=== PATIENT | female | born 1955 | race Caucasian/White ===

== ENCOUNTER → 2017-01-28 | Outpatient (CLI) | payer BC ==
--- NOTE | 2017-01-28 16:18 | CT ---
EXAMINATION TYPE: CT chest wo con DATE OF EXAM: 01/28/2017 COMPARISON: Radiograph 04/09/2016 HISTORY: 61-year-old female with asthma, SOB x1 year. TECHNIQUE: Contiguous axial scanning of the chest without IV contrast. Coronal and sagittal reconstru ctions performed. CT DLP: 664 mGycm Automated exposure control for dose reduction was used. FINDINGS: There is a 2.9 x 1.6 cm hypodense nodule in the left lobe of the thyroid gland. This can be further e valuated with a dedicated thyroid ultrasound. Suspect an additional exophytic nodule from the lower p ole measuring 1.6 cm. Heart is normal size without pericardial effusion. Aorta is normal caliber with conventional arch vessel branching anatomy. No thoracic lymphadenopathy. Evaluation of the lungs show some mild subpleural interstitial scarring in the upper lungs. No conso lidation or pleural effusion. Calcified granuloma posterior left upper to midlung, axial image 16. There is also a 4 mm left upper lobe pulmonary nodule, axial image 16. Tiny hiatal hernia. Visualized upper abdomen shows mild to moderate stool. Bones: Mild multilevel endplate spondylosis. IMPRESSION: 1. NO ACUTE PULMONARY PROCESS. A 4 MM LEFT UPPER LOBE PULMONARY NODULE CAN BE REASSESSED IN ONE YEAR. 2. SOME INTERSTITIAL SCARRING WITHIN THE UPPER LUNGS AND A SMALL CALCIFIED GRANULOMA IN THE LEFT LUNG . 3. LEFT THYROID LOBE NODULES MEASURING 2.9 AND 1.6 CM. FURTHER THYROID ULTRASOUND EVALUATION IS RECOM MENDED. 4. TINY HIATAL HERNIA.
--- NOTE | 2017-01-29 21:00 | ECHOF ---
Referral Reason:J45.909 asthma MEASUREMENTS -------- HEIGHT: 160.0 cm WEIGHT: 82.6 kg BP: 171/96 RVIDd: 2.6 cm (< 3.3) IVSd: 1.0 cm (0.6 - 1.1) LVIDd: 3.6 cm (3.9 - 5.3) LVPWd: 1.2 cm (0.6 - 1.1) IVSs: 1.4 cm LVIDs: 2.7 cm LVPWs: 1.4 cm LAESV Index (A-L): 11.31 ml/m Ao Diam: 2.5 cm (2.0 - 3.7) AV Cusp: 1.4 cm (1.5 - 2.6) LA Diam: 2.7 cm (2.7 - 3.8) MV E Jesse: 0.64 m/s MV DecT: 266 ms MV A Jesse: 0.90 m/s MV E/A Ratio: 0.72 FINDINGS -------- Sinus rhythm. This was a technically adequate study. Overall left ventricular systolic function is normal with, an EF between 55 - 60 %. The right ventricle is normal in size and function. Normal LA size by volume 22+/-6 ml/m2. The right atrium is normal in size. The aortic valve is trileaflet, and appears structurally normal. No aortic stenosis or regurgitation. The mitral valve leaflets are mildly thickened. There is trace to mild mitral regurgitation. Trace tricuspid regurgitation present. There is no evidence of pulmonary hypertension. The right ventricular systolic pressure, as measured by Doppler, is {RVSP}. The pulmonic valve was not well visualized. The aortic root size is normal. Normal inferior vena cava with normal inspiratory collapse consistent with estimated right atrial pressure of 5 mmHg. The pericardium is normal. Echo free space may represent effusion or a pericardial fat pad. CONCLUSIONS -------- 1. Sinus rhythm. 2. The right ventricular systolic pressure, as measured by Doppler, is {RVSP}. 3. The pulmonic valve was not well visualized. 4. The aortic root size is normal. 5. Echo free space may represent effusion or a pericardial fat pad. 6. This was a technically adequate study. 7. Overall left ventricular systolic function is normal with, an EF between 55 - 60 %. 8. Normal LA size by volume 22+/-6 ml/m2. 9. The aortic valve is trileaflet, and appears structurally normal. No aortic stenosis or regurgitation. 10. The mitral valve leaflets are mildly thickened. 11. There is trace to mild mitral regurgitation. 12. Trace tricuspid regurgitation present. 13. There is no evidence of pulmonary hypertension. [employer] ARCHITECT: Marino Hassan RDCS
== END | disposition home or self-care (01) ==
LOC: RADCTMAIN 14:50
PROVIDERS: ATTEND Internal Medicine Critical Care Medicine
DX: I34.0 Nonrheumatic mitral (valve) insufficiency (principal); R91.1 Solitary pulmonary nodule; J98.4 Other disorders of lung; K44.9 Diaphragmatic hernia without obstruction or gangrene
CPT/HCPCS: 71250; 93306

== ENCOUNTER → 2017-02-05 | Outpatient (CLI) | payer BC ==
--- NOTE | 2017-02-05 14:16 | US ---
EXAMINATION TYPE: US thyroid st tissue head/neck DATE OF EXAM: 02/05/2017 COMPARISON: CT CLINICAL HISTORY: E04.1 Nontoxic Single Thyroid Nodule. Nodule seen on recent CT GLAND SIZE: Right Lobe: 5.0 x 1.7 x 1.2 cm Overall Parenchyma: homogenous Left Lobe: 5.4 x 2.3 x 2.3 cm Overall Parenchyma: heterogeneous Isthmus Thickness: 0.2 cm NODULES RIGHT: # of nodules measured on right: 2 1. 0.8 X 0.4 x 0.7 cm hypoechoic solid nodule at the upper pole with well-defined margins. This nod ule is wider than tall and shows no intranodular vascularity. Prior size: no prior 2. 0.6 X 0.3 x 0.4 cm hypoechoic solid nodule at the mid pole with well-defined margins. This nodule is wider than tall and shows no intranodular vascularity. Prior size: no prior LEFT: # of nodules measured on left: 2 1. 3.5 X 1.9 x 2.1 cm hypoechoic solid nodule at the mid pole with well-defined margins. This nodul e is wider than tall and shows intranodular vascularity. Prior size: no prior 2. 1.6 X 1.1 x 1.7 cm hypoechoic cystic nodule at the lower pole with well-defined margins. This nod ule is wider than tall and shows no intranodular vascularity. Prior size: no prior ISTHMUS: # of nodules measured in the isthmus: 0 Bilateral neck scanned, no evidence of lymphadenopathy. Nodules as described, lower lobe nodules appears within thyroid on ultrasound. IMPRESSION: Enlarged multinodular goiter with a suspicious dominant solid, vascular nodule measuring 3.5 cm. Perc utaneous fine-needle aspiration is recommended for tissue sampling of this nodule.
== END | disposition home or self-care (01) ==
LOC: RADUSWWP 13:23
PROVIDERS: ATTEND Internal Medicine
DX: E04.2 Nontoxic multinodular goiter (principal)
CPT/HCPCS: 76536

== ENCOUNTER 2017-03-11 07:43 | Day surgery (SDC) | payer BC ==
[2017-03-04 16:14] VITALS: BMI 30.4
[~2017-03-11 07:43] MED LIST: DEXAMETHASONE SOD PHOSPHATE 10 MG/ML 1 ML VIAL IV ONE; HEPARIN SODIUM,PORCINE 5,000 UNIT/ML 1 ML VIAL SQ ONE; HYDROmorphone 0.5 MG/0.5 ML SYRINGE IVP PRN; LACTATED RINGERS 1,000 ML IV SCH; MIDAZOLAM 2 MG/2 ML VIAL IV PRN; Pre Op ABX Message 1 EACH MISC MISCELLANE ONE; SCOPOLAMINE 1.5MG/72HR PATCH TRANSDERM ONE
[2017-03-11] MEDS ORDERED: LIDOCAINE 1% 20 ML VIAL (10MG/ML) FOR IV START INTRADERMA ONE (08:26)
[2017-03-11] MEDS: ONDANSETRON 4 MG/2 ML VIAL IVP ONE ×2 (08:26→12:20)
[2017-03-11] MEDS ORDERED: HEPARIN SODIUM,PORCINE 5,000 UNIT/ML 1 ML VIAL SQ ONE (08:51)
[2017-03-11] MEDS ORDERED: fentaNYL (PF) 50 MCG/ML 2 ML AMP ONE (09:44)
[2017-03-11] MEDS ORDERED: LIDOCAINE 1% INJ 10MG/ML (20 ML MDV) ONE (09:44)
[2017-03-11] MEDS ORDERED: SUCCINYLCHOLINE CHLORIDE 100 MG/5 ML SYR IV ONE (09:44)
[2017-03-11] MEDS ORDERED: PROPOFOL 10 MG/ML 20 ML VIAL IV ONE (09:44)
[2017-03-11] MEDS ORDERED: ePHEDrine SULFATE/0.9% NACL/PF 50 MG/5 ML SYRINGE IV ONE (09:44)
[2017-03-11] MEDS ORDERED: MIDAZOLAM 2 MG/2 ML VIAL ONE (09:44)
[2017-03-11] MEDS ORDERED: SODIUM CHLORIDE 0.9% 50 ML with CLINDAMYCIN 600 MG IV ONE ×2 (10:14)
[2017-03-11] MEDS ORDERED: LACTATED RINGERS 1,000 ML IV ONE (11:30)
[2017-03-11] MEDS ORDERED: NALOXONE 0.4 MG/ML 1 ML VIAL IV PRN (12:02)
[2017-03-11] MEDS ORDERED: CALCIUM CARBONATE 500 MG CHEWABLE PO PRN (12:02)
[2017-03-11] MEDS ORDERED: ONDANSETRON 4 MG/2 ML VIAL IVP PRN (12:02)
[2017-03-11] MEDS ORDERED: HYDROmorphone 1 MG/ML 1 ML SYRINGE IV PRN (12:02)
--- NOTE | 2017-03-11 12:02 | P.OP ---
Date of Procedure: 03/11/17 Preoperative Diagnosis: left thyroid nodule with compressive symptoms Postoperative Diagnosis: same Procedure(s) Performed: left thyroid resection Anesthesia: PRANAY Surgeon: Annalee Hassan Estimated Blood Loss (ml): 15 IV fluids (ml): 900 Pathology: other (left lobe of thyroid) Condition: stable Disposition: PACU Indications for Procedure: 3.5 cm solid nodule left lobe of thyroid FNA with some atypia, patient has compressive symptoms, patient's molecular studies did not indicate cancer, however secondary compressive symptoms was recommended she undergo a left thyroid lobectomy possible total Operative Findings: Inflammatory changes in both lobes of the thyroid with a 3.5 cm superior pole nodule on the left Description of Procedure: The patient was noted to have a 0.5 cm nodule in the left lobe of the thyroid. She underwent an FNA wishes some atypia molecular studies were not consistent with cancer. This patient is having compressive symptoms and was seen by endocrinology. Was recommended she undergo a left thyroid lobectomy possible total thyroid lobectomy. Patient understands risks and benefits and wishes to proceed. The patient was taken to the operating room and following induction of general anesthesia the nerve stimulator was placed. The patient was placed in the beachchair position. The neck was prepped and draped in a sterile fashion. A collar incision was made and carried through the skin and subcutaneous tissue to the platysma. The platysma was divided. Superior and inferior skin flaps were developed. The strap muscles were divided in the midline. The left lobe of the thyroid was identified. The lobe was rotated medially being careful to identify and preserve the parathyroid glands as well as the recurrent laryngeal nerve. Superior pole vessels were ligated and divided. Inferior pole vessels were likewise ligated and divided. The lobe was rotated up onto the isthmus and the gland was divided using the Harmonic scalpel. The silk suture was placed on the isthmus as well. The recurrent laryngeal nerve was well identified. Both parathyroids on the left side were identified and preserved. There was no evidence of any bleeding at the termination of this portion of the procedure. The wound was irrigated. The specimen was sent to pathology for frozen section evaluation. The gland was very smooth however did have inflammatory changes on the external surface. Upon evaluation by pathology it was felt that frozen section would not be beneficial and therefore this was not performed. The right lobe of the thyroid was palpated again inflammatory changes appear to be present on the external surface of the gland however no enlarged nodules of concern were appreciated. Therefore was determined that we would not do a right thyroid lobectomy at this time for pathology. A Lynne drain was placed in the left gland fossa site. The strap muscles were sutured together using a 3-0 Vicryl suture. The platysma was closed with a 3-0 Vicryl suture. The skin was closed using 4-0 Monocryl. The drain was secured using nylon suture. The patient tolerated the procedure in stable condition. All instrument and sponge counts were correct at the end of the case
[2017-03-11] MEDS ORDERED: PROMETHAZINE INJ 25 MG/ML 1 ML VIAL IVPB ONE (13:05)
[2017-03-11] MEDS ORDERED: METOCLOPRAMIDE 5 MG/ML 2 ML VIAL IVP ONE (13:06)
[2017-03-11] MEDS: DEXTROSE 5%-0.45% NACL 1,000 ML IV SCH ×2 (14:31→21:31)
[2017-03-11 16:24] VITALS: RESP 16
[2017-03-11] MEDS: HEPARIN SODIUM,PORCINE 5,000 UNIT/ML 1 ML VIAL SQ SCH (16:35)
--- NOTE | 2017-03-11 18:00 | P.CON ---
Consult Note - . Assessment/Plan:: History of present illness the The patient is a 61-year-old female who has undergone surgical removal of a 3.5 cm superior pole nodule of the left lobe of the thyroid. The patient has been having some problems with shortness of breath and workup with the CAT scan revealed the nodule. The patient did undergo fine-needle aspiration. There was some indication at this may be causing some compression symptoms on the trachea and removal was undertaken. 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 Gastroesophageal reflux Surgical history Cardiac catheterization in February 2016 Previous multiple bilateral breast biopsies Repair of left rotator cuff A previous oophorectomy on the right. Previous bunionectomy The patient did have a fairly normal catheterization performed earlier this year. No history of myocardial infarction, diabetes or stroke. Medications: History of ALLERGIES to cephalexin with nausea and vomiting Home medications Mucinex twice a day Prilosec daily Pravastatin 20 mg at at bedtime Xyzal 5 mg daily Ibuprofen 800 mg twice a day when necessary Soma 350 mg 3 times a day as needed Calcium/vitamin D 600-400 twice daily Symbicort 800-4.52 inhalations twice a day. Review of systems: The patient sitting up in bed postop. No chest pain or shortness of breath. No nausea or vomiting at this time. No headache or visual disturbances. Family history Positive history of colon cancer and ovarian cancer. Social history Negative for smoking or alcohol usage. She does live locally with her . She is a retired nurse. Physical examination Pulse is 88 with respirations 16 and blood pressure 120/71. She is 97% saturated on 2 L. Head is atraumatic. Extraocular movements are intact. The neck has a dressing present from her surgery. Lungs are clear to auscultation. Heart tones are regular without murmurs or rubs. Breast and pelvic exams deferred. Abdomen is soft and nontender. No unusual distal edema. She is alert and oriented. Cranial nerves intact. No focal neurological changes. Calcium is 9.2. Impressions and plans: Patient overall is doing well postop. Medications for acid reduction gastroesophageal reflux have been continued. We will also continue her inhalers for asthma control. Patient can be advanced as per surgery. Please call if any questions concerns or problems.
[2017-03-11] MEDS: HYDROcodone/APAP 5-325MG 1 EACH TAB PO PRN (18:48)
[2017-03-11] MEDS: SYMBICORT 80-4.5 MCG INHALER INHALATION SCH ×2 (20:42→20:56)
[2017-03-11] MEDS: guaiFENesin-DM 600/30MG 1 EACH TAB.ER.12H PO SCH (21:31)
[2017-03-12] MEDS: HEPARIN SODIUM,PORCINE 5,000 UNIT/ML 1 ML VIAL SQ SCH ×2 (00:19→07:59)
[2017-03-12] MEDS: HYDROcodone/APAP 5-325MG 1 EACH TAB PO PRN (02:19)
[2017-03-12 07:19] VITALS: BP 111/69; PULSE 65; TEMP 98.3
[2017-03-12] MEDS: guaiFENesin-DM 600/30MG 1 EACH TAB.ER.12H PO SCH (07:58)
--- NOTE | 2017-03-12 08:27 | P.PN ---
Progress Note - Text The patient is a 61-year-old female who underwent surgical removal of a 3.5 cm nodule at the left lower thyroid yesterday. Patient has a history of comorbidities that include hyperlipidemia, degenerative joint disease, osteopenia, gastroesophageal reflux and some element of moderate persistent asthma. This morning though she is sitting up eating breakfast. Denies any complaints of shortness of breath or chest pain. No nausea or vomiting. Vital signs reveal temperature this morning 98.3 with a pulse of 65 and respirations 16. Blood pressure is 111/69 and she is 94% saturated on room air. Lung and heart examination is clear and regular. Abdomen is nontender. No unusual distal edema. No focal neurological changes. Impressions and plans Patient appears to be doing well post surgery. The patient may resume her home medications on discharge and follow-up with surgery. She is to call office if any concerns or problems otherwise she may keep her regularly scheduled appointment.
[2017-03-12] MEDS: SYMBICORT 80-4.5 MCG INHALER INHALATION SCH (08:45)
[2017-03-12] MEDS ORDERED: PANTOPRAZOLE 40 MG/10 ML VIAL IV SCH (09:00)
--- NOTE | 2017-03-12 09:24 | P.DS ---
Providers Expected date of discharge: 03/12/17 Attending physician: Annalee Hassan Consults: 03/11/17 12:05 Consult Physician Routine Consulting Provider: Bertrand Boswell Reason/Comments: medical managment Do you want consulting provider notified?: Yes Primary care physician: Bertrand Boswell [facility] Course: 61-year-old female presented to undergo an elective left thyroid resection for a left thyroid nodule with compressive symptoms done on March 11. On March 12 Dr. Butts removed the Lynne drain from surgical site. Patient was felt to be hemodynamically stable and appropriate to proceed with a discharge to home. There was no facial numbness difficulty in swallowing there is no audible wheezing is on room air were 94% temp is 98.3 the calcium was 9.2. Subsequent the patient was discharged home with the plan the patient would follow-up with Dr. Butts in the outpatient setting the path report would be discussed when the results were available Impression discharge diagnosis Esophageal reflux. Status post March 11 thyroid resection of a 3.5 solid nodule left lobe of the thyroid with FNA Compressive symptoms suspect due to left lobe nodule mass The above impression and plan of care have been discussed and directed by signing physician. Anne Solorio nurse practitioner acting as scribe for signing physician. Plan - Discharge Summary New Discharge Prescriptions: New HYDROcodone/APAP 5-325MG [[place] 5-325] 1 tab PO Q4HR PRN #30 tab PRN Reason: Moderate Pain Continue Carisoprodol [Soma] 350 mg PO TID PRN PRN Reason: Muscle Spasm Pravastatin Sodium [Pravachol] 20 mg PO HS guaiFENesin-DM 600/30MG [Mucinex Dm] 1 each PO BID Multivit with Calcium,Iron,Min [Women's Daily Multivitamin] 1 each PO DAILY Inulin/Chromium Picolinate [Fiber Gummies Chew] 1 each PO DAILY Calcium Carbonate/Vitamin D3 [Calcium 600-Vit D3 400 Caplet] 1 each PO BID Budesonide/Formoterol Fumarate [Symbicort 80-4.5 Mcg Inhaler] 2 puff INHALATION BID Prilosec (Unknown Dose) 1 tab PO QAM Levocetirizine Dihydrochloride [Xyzal] 5 mg PO DAILY Ibuprofen [Motrin] 800 mg PO BID Discharge Medication List Calcium Carbonate/Vitamin D3 [Calcium 600-Vit D3 400 Caplet] 1 each PO BID 02/14 [History] Carisoprodol [Soma] 350 mg PO TID PRN 02/15/16 [History] Inulin/Chromium Picolinate [Fiber Gummies Chew] 1 each PO DAILY 02/15/16 [ History] Multivit with Calcium,Iron,Min [Women's Daily Multivitamin] 1 each PO DAILY 07/01 [History] Pravastatin Sodium [Pravachol] 20 mg PO HS 02/15/16 [History] guaiFENesin-DM 600/30MG [Mucinex Dm] 1 each PO BID 02/15/16 [History] Budesonide/Formoterol Fumarate [Symbicort 80-4.5 Mcg Inhaler] 2 puff INHALATION BID 03/04/17 [History] Ibuprofen [Motrin] 800 mg PO BID 03/04/17 [History] Levocetirizine Dihydrochloride [Xyzal] 5 mg PO DAILY 03/04/17 [History] Prilosec (Unknown Dose) 1 tab PO QAM 03/04/17 [History] HYDROcodone/APAP 5-325MG [[place] 5-325] 1 tab PO Q4HR PRN #30 tab 03/12/17 [Rx] Follow up Appointment(s)/Referral(s): Annalee Hassan MD [STAFF PHYSICIAN] - 1 Week Bertrand Boswell MD [Primary Care Provider] - 1 Week Care Plan Goals (MU): Dr. Butts's office this Friday follow-up if path report is available to review results May shower daily No heavy lifting greater than a milk carton tell seen in the follow-up visit with Dr. Butts No driving a car while taking [place] pain medication Notify Dr. Butts if any redness at surgical site fever chills or increased drainage Discharge Disposition: HOME SELF-CARE
== END 2017-03-12 10:51 | disposition home or self-care (01) ==
LOC: OR 07:43 → 6PED 12:58 → 3SUR 17:05 → OR 03-12 10:51
PROVIDERS: ATTEND Surgery
DX: C73 Malignant neoplasm of thyroid gland (principal); E06.3 Autoimmune thyroiditis; E04.2 Nontoxic multinodular goiter; E78.5 Hyperlipidemia, unspecified; K21.9 Gastro-esophageal reflux disease without esophagitis; Z79.51 Long term (current) use of inhaled steroids; Z79.899 Other long term (current) drug therapy; J45.909 Unspecified asthma, uncomplicated; M85.80 Other specified disorders of bone density and structure, unspecified site; Z79.1 Long term (current) use of non-steroidal anti-inflammatories (NSAID); Z88.1 Allergy status to other antibiotic agents
CPT/HCPCS: 94640 ×2; 82310; 88307; 60200; J2250; J1644 ×2; J1100; J2550; J2765; J2405; J2001; J3010; J0330; J2704; J1170

== ENCOUNTER → 2017-11-19 | Outpatient (CLI) | payer BC ==
--- NOTE | 2017-11-19 09:49 | US ---
EXAMINATION TYPE: US thyroid st tissue head/neck DATE OF EXAM: 11/19/2017 COMPARISON: US 02/05/2017 CLINICAL HISTORY: E04.2 Nontoxic multinodular goiter. Left lobe surgically absent GLAND SIZE: Right Lobe: 3.9 x 1.4 x 1.1 cm Overall Parenchyma: heterogenous Left Lobe: Surgically absent NODULES RIGHT: # of nodules measured on right: 2 1. 0.8 X 0.4 x 0.6 cm hypoechoic solid nodule at the upper pole with well-defined margins; . This nodule is wider than tall and shows intranodular vascularity. Prior size: 0.8 x 0.4 x 0.6 cm 2. 0.6 X 0.3 x 0.4 cm hypoechoic solid nodule at the lower pole with well-defined margins; . This n odule is wider than tall and shows intranodular vascularity. Prior size: 0.6 x 0.3 x 0.4 cm LEFT: # of nodules measured on left: 0 ISTHMUS: # of nodules measured in the isthmus: 0 Bilateral neck scanned, no evidence of lymphadenopathy. IMPRESSION: Nonspecific thyroid nodularity. Need to biopsy should be made on a clinical basis.
[2017-11-19 10:50] LABS: T4, Free (Free Thyroxine) 1.07 ng/dL (0.78-2.19)
== END | disposition home or self-care (01) ==
LOC: RADUSWWP 08:54
PROVIDERS: ATTEND Internal Medicine Endocrinology, Diabetes & Metabolism
DX: E04.2 Nontoxic multinodular goiter (principal)
CPT/HCPCS: 36415; 76536; 84439; 84443

== ENCOUNTER → 2018-05-01 | Outpatient (CLI) | payer BC ==
--- NOTE | 2018-05-01 12:33 | P.GSHP ---
History of Present Illness H&P Date: 05/01/18 Chief Complaint: breast fibrocystic changes Torri is a 62 year old white female who presents for a breast exam. The patient denies any lumps or masses in her breast. She has no pain in her breast. She has no nipple discharge or skin changes for which she is concerned. She had a bilateral mammogram done approximately a month ago and was told that this was within normal limits and that she could have a repeat mammogram in 1 year. I do not yet have the report from the mammogram available. She has had bilateral breast biopsies in the past all of which have been benign. Family History: mother: breast cancer 73 brother: colon/metastatic maternal aunt: colon Hormonal History: menarche: 13 ; none menopause: 55 BCP: none hormones: none Past Surgical History: 1. Bunionectomy 2. Left thyroid lobectomy 3. Multiple bilateral breast biopsies 4. Right oophrectomy 5. right carpal tunnel 6. left shoulder rotater cuff repair 7. left knee 8. heart cath Medical history: 1. Sleep apnea 2. High cholesterol Social history: Smoked: Negative Alcohol: Occasional wine Drugs: negative - Constitutional Comment: hot flashes Constitutional: Denies chills, Denies fever - EENT Eyes: denies blurred vision, denies pain Ears: bilateral: tinnitus, deny: decreased hearing Ears, nose, mouth and throat: Denies headache, Denies sore throat - Breasts Breasts: bilateral: as per HPI - Cardiovascular Cardiovascular: Denies chest pain, Denies shortness of breath - Respiratory Comment: asthma sleep apnea Respiratory: Denies cough, Denies 7 - Gastrointestinal Comment: Colonoscopy up-to-date Gastrointestinal: Reports constipation, Denies abdominal pain, Denies diarrhea, Denies nausea, Denies vomiting - Genitourinary (Female) Genitourinary: Denies dysuria, Denies hematuria - Menstruation Menstruation: Reports postmenopausal - Musculoskeletal Comment: arthritis - Integumentary Integumentary: Denies pruritus, Denies rash - Neurological Neurological: Denies numbness, Denies weakness - Psychiatric Psychiatric: Denies anxiety, Denies depression - Endocrine Endocrine: Denies fatigue, Denies weight change - Hematologic/Lymphatic Comment: motrin - Allergic/Immunologic Comment: no seasonal allergies Past Medical History Past Medical History: Asthma, GERD/Reflux, Hyperlipidemia, Hypertension, Osteoarthritis (OA), Thyroid Disorder Additional Past Medical History / Comment(s): Recent high blood pressure. "Questionable asthma, thinks maybe related to thyroid", current thyroid nodules pushing on trachea, current hiatal hernia, hx diverticulosis, DDD, neck & back pain, couple episodes of both arms numb, recent SOB w/activity, seasonal allergies. "Possible sleep apnea, may also be related to thyroid nodules." History of Any Multi-Drug Resistant Organisms: None Reported Past Surgical History: Breast Surgery, Heart Catheterization, Orthopedic Surgery Additional Past Surgical History / Comment(s): Multiple breast biopsies, bunionectomy, right oophorectomy, left rotator cuff repair. Past Anesthesia/Blood Transfusion Reactions: No Reported Reaction, Family History of Problems w/ Anesthesia Additional Past Anesthesia/Blood Transfusion Reaction / Comment(s): Mom with PONV. Past Psychological History: No Psychological Hx Reported Smoking Status: Never smoker Past Alcohol Use History: Occasional Past Drug Use History: None Reported - Past Family History Brother(s) Family Medical History: Cancer Father Family Medical History: Myocardial Infarction ([place]) Mother Family Medical History: Cancer Medications and Allergies Home Medications Medication Instructions Recorded Confirmed Type Calcium Carbonate/Vitamin D3 1 each PO BID 02/15/16 03/11/17 History [Calcium 600-Vit D3 400 Caplet] Carisoprodol [Soma] 350 mg PO TID PRN 02/15/16 03/11/17 History Inulin/Chromium Picolinate [Fiber 1 each PO DAILY 02/15/16 03/11/17 History Gummies Chew] Multivit with Calcium,Iron,Min 1 each PO DAILY 02/15/16 03/11/17 History [Women's Daily Multivitamin] Pravastatin Sodium [Pravachol] 20 mg PO HS 02/15/16 03/11/17 History guaiFENesin-DM 600/30MG [Mucinex 1 each PO BID 02/15/16 03/11/17 History Dm] Budesonide/Formoterol Fumarate 2 puff INHALATION BID 03/04/17 03/11/17 History [Symbicort 80-4.5 Mcg Inhaler] Ibuprofen [Motrin] 800 mg PO BID 03/04/17 03/11/17 History Levocetirizine Dihydrochloride 5 mg PO DAILY 09/19/17 09/26/17 History [Xyzal] Prilosec (Unknown Dose) 1 tab PO QAM 03/04/17 03/11/17 History HYDROcodone/APAP 5-325MG [[place] 1 tab PO Q4HR PRN #30 tab 03/12/17 Rx 5-325] Allergies Allergy/AdvReac Type Severity Reaction Status Date / Time cephalexin monohydrate AdvReac Nausea & Verified 03/11/17 14:34 [From Keflex] Vomiting Surgical - Exam - General well developed, well nourished, no distress - Eyes normal ocular movement - ENT no hearing loss, no congestion - Neck no masses, trachea midline - Respiratory normal respiratory effort, clear to auscultation - Cardiovascular Rhythm: regular Heart Sounds: normal: S1, S2 - Abdomen Abdomen: soft, non tender, no guarding, no rigid, no rebound - Integumentary normal turger - Neurologic no disoriented, no combative - Musculoskeletal normal gait, normal posture, other - Psychiatric oriented to time, oriented to person, oriented to place, speech is normal, memory intact Breast examination: Right breast: Multi-positional exam no dominant mass or nodules of concern, well -healed scar from prior abscesses Right axilla: No adenopathy of concern Left breast: Multi-positional exam no dominant masses or nodules of concern Left axilla: No adenopathy of concern Assessment and Plan Assessment: Impression: 1. Bilateral fibrocystic breast changes no dominant masses or nodules of concern 2. Reportedly recent bilateral mammogram was benign and recommended repeat bilateral mammogram in 1 year 3. Sleep apnea 4. Asthma 5. Arthritis Plan: 1. Obtain report from recent bilateral mammogram 2. Medical management of medical problems As long as report from recent mammogram does not reveal anything of concern patient has stable breast examination and repeat bilateral mammogram and physician exam in 1 year. Cc: Dr. Boswell
[2018-05-01 12:36] VITALS: BP 153/81; PULSE 94; RESP 18; TEMP 97.6; BMI 30.1
== END ==
LOC: WWCWWP 11:55
PROVIDERS: ATTEND Surgery
DX: Z53.9 Procedure and treatment not carried out, unspecified reason (principal)

== ENCOUNTER → 2018-11-04 | Outpatient (CLI) | payer BC ==
--- NOTE | 2018-11-04 15:50 | XR ---
EXAMINATION TYPE: XR chest 2V DATE OF EXAM: 11/04/2018 COMPARISON: CT chest 01/28/2017 HISTORY: Shortness of breath TECHNIQUE: Frontal and lateral views of the chest are obtained. FINDINGS: There is no focal air space opacity, pleural effusion, or pneumothorax seen. The cardiac silhouette size is within normal limits. There is bronchial wall thickening. The osseous structures are intact. IMPRESSION: Correlate for reactive airways disease, bronchitis.
== END | disposition home or self-care (01) ==
LOC: RADXRMAIN 14:26
PROVIDERS: ATTEND Internal Medicine
DX: R06.02 Shortness of breath (principal)
CPT/HCPCS: 71046

== ENCOUNTER → 2018-12-02 | Outpatient (CLI) | payer BC ==
[2018-12-02 17:49] LABS: T4, Free (Free Thyroxine) 0.9 ng/dL (0.80-1.80)
== END | disposition home or self-care (01) ==
LOC: LABWHC1 08:38
PROVIDERS: ATTEND Internal Medicine Endocrinology, Diabetes & Metabolism
DX: E04.2 Nontoxic multinodular goiter (principal)
CPT/HCPCS: 36415; 84439; 84443

== ENCOUNTER → 2019-04-09 | Outpatient (CLI) | payer BC ==
--- NOTE | 2019-04-09 10:04 | BD ---
EXAMINATION TYPE: Axial Bone Density DATE OF EXAM: 04/09/2019 COMPARISON: NONE CLINICAL HISTORY: Disorder of bone. Postmenopausal female. Height: 63 Weight: 174.5 FRAX RISK QUESTIONS: Alcohol (3 or more units per day): no Family History (Parent hip fracture): no Glucocorticoids (More than 3mos): no (Ex: prednisone, prednisolone, methylprednisolone, dexamethasone, and hydrocortisone). History of Fracture in Adulthood: no Secondary Osteoporosis: 1. Type 1 Diabetes: no 2. Hyperthyroidism: no 3. Menopause before 45: no 4. Malnutrition: no 5. Chronic liver disease: no Rheumatoid Arthritis: no Current Tobacco Use: no RISK FACTORS HISTORY OF: Family History of Osteoporosis: no Active: yes Diet low in dairy products/other sources of calcium: no Postmenopausal woman: age 51 Lost more than 2 inches in height since high school: no MEDICATIONS: Crestor, Symbicort, Motrin, inhalers Additional History: EXAM MEASUREMENTS: Bone mineral densitometry was performed using the [employer] System. Bone mineral density as measured about the Lumbar spine is: ----- L1-L4(G/cm2): 1.117 T Score Values are as follows: ----- L2: -0.2 ----- L3: 0.1 ----- L4: -0.9 ----- L1-L4: -0.5 Bone mineral density : baseline Bone mineral density about the R hip (g/cm2): 0.851 Bone mineral density about the L hip (g/cm2): 0.830 T Score values are as follows: -----R Neck: -1.3 -----L Neck: -1.5 -----R Total: -0.4 -----L Total: -0.5 Bone mineral density : baseline IMPRESSION: Osteopenia (T Score between -2.5 and -1). There is slightly increased risk of fracture and the patient may be considered for treatment. Re-Screen 2-5 years. NOTE: T-SCORE=SD OF THE YOUNG ADULT MEAN.
--- NOTE | 2019-04-12 08:23 | MM ---
Reason for exam: screening (asymptomatic). Last mammogram was performed 19 years ago. History: Patient is postmenopausal and is nulliparous. Family history of breast cancer in mother at age 72. Benign excisional biopsy of the right breast, April 30, 2000. Benign excisional biopsy of the left breast, November 29, 1998. 9 cyst aspirations of the left breast. 2 cyst aspirations of the right breast. Excisional biopsy of the right breast. Physical Findings: A clinical breast exam by your physician is recommended on an annual basis and results should be correlated with mammographic findings. MG 3D Screening Mammo W/Cad Bilateral CC and MLO view(s) were taken. Prior study comparison: April 21, 2018, mammogram, performed at [facility]. April 10, 2016, mammogram, performed at [facility]. The breast tissue is heterogeneously dense. This may lower the sensitivity of mammography. Finding #1: Stable architectural distortion in the upper outer quadrant of the right breast consistent with previous biopsy. Finding #2: There are typically benign calcifications in both breasts. Previous mammotome biopsy in the left breast. ASSESSMENT: Benign, BI-RAD 2 RECOMMENDATION: Routine screening mammogram of both breasts in 1 year.
== END | disposition home or self-care (01) ==
LOC: RADMAMWWP 07:52
PROVIDERS: ATTEND Surgery
DX: Z12.31 Encounter for screening mammogram for malignant neoplasm of breast (principal); M85.80 Other specified disorders of bone density and structure, unspecified site; Z80.3 Family history of malignant neoplasm of breast
CPT/HCPCS: 77063; 77067; 77080

== ENCOUNTER → 2019-04-16 | Outpatient (CLI) | payer BC ==
[2019-04-16 10:18] VITALS: BP 144/84; PULSE 86; RESP 18; TEMP 98; BMI 30.2
--- NOTE | 2019-04-16 11:11 | P.PN ---
Subjective Progress Note Date: 04/16/19 Principal diagnosis: Mastodynia, fibrocystic breast changes Torri is a 62 year old white female who presents for a breast exam. The patient denies any lumps or masses in her breast. She has pain intermittently in the left breast in the upper outer quadrant area. The pain is aching in nature. She has had multiple bilateral prior biopsies. The area does not feel fall when she has the discomfort. The discomfort seems to resolve on its own. She does not related to any specific activities. That had any trauma to her breast. She has no nipple discharge or skin changes for which she is concerned. Patient does not drink any caffeine. She does not smoke and is not exposed to secondhand smoke. She does eat chocolate weekly. She does not take hormones or use any sort products. The patient had a bilateral 3-D mammogram on [id number]. This revealed stable architectural distortion in the upper outer quadrant of the right breast consistent with previous biopsy Benign calcifications in both breast, previous mammotome biopsy in the left breast 5 minutes to Family History: mother: breast cancer 73 brother: colon/metastatic maternal aunt: colon Hormonal History: menarche: 13 ; none menopause: 55 BCP: none hormones: none Past Surgical History: 1. Bunionectomy 2. Left thyroid lobectomy 3. Multiple bilateral breast biopsies 4. Right oophrectomy 5. right carpal tunnel 6. left shoulder rotater cuff repair 7. left knee 8. heart cath Medical history: 1. Sleep apnea 2. High cholesterol Social history: Smoked: Negative Alcohol: Occasional wine Drugs: negative - Constitutional Comment: hot flashes Constitutional: Denies chills, Denies fever - EENT Eyes: denies blurred vision, denies pain Ears: bilateral: tinnitus, deny: decreased hearing Ears, nose, mouth and throat: Denies headache, Denies sore throat - Breasts Breasts: bilateral: as per HPI - Cardiovascular Cardiovascular: Denies chest pain, Denies shortness of breath - Respiratory Comment: asthma sleep apnea Respiratory: Denies cough, Denies 7 - Gastrointestinal Comment: Colonoscopy up-to-date Gastrointestinal: Reports constipation, Denies abdominal pain, Denies diarrhea, Denies nausea, Denies vomiting - Genitourinary (Female) Genitourinary: Denies dysuria, Denies hematuria - Menstruation Menstruation: Reports postmenopausal - Musculoskeletal Comment: arthritis - Integumentary Integumentary: Denies pruritus, Denies rash - Neurological Neurological: Denies numbness, Denies weakness - Psychiatric Psychiatric: Denies anxiety, Denies depression - Endocrine Endocrine: Denies fatigue, Denies weight change - Hematologic/Lymphatic Comment: motrin - Allergic/Immunologic Comment: no seasonal allergies Past Medical History Past Medical History: Asthma, GERD/Reflux, Hyperlipidemia, Hypertension, Osteoarthritis (OA), Thyroid Disorder Additional Past Medical History / Comment(s): Recent high blood pressure."Questionable asthma, thinks maybe related to thyroid", current thyroid nodules pushing on trachea, current hiatal hernia, hx diverticulosis, DDD, neck & back pain, couple episodes of both arms numb, recent SOB w/activity, seasonal allergies. "Possible sleep apnea, may also be related to thyroid nodules." History of Any Multi-Drug Resistant Organisms: None Reported Past Surgical History: Breast Surgery, Heart Catheterization, Orthopedic Surgery Additional Past Surgical History / Comment(s): Multiple breast biopsies, bunionectomy, right oophorectomy, left rotator cuff repair. Past Anesthesia/Blood Transfusion Reactions: No Reported Reaction, Family History of Problems w/ Anesthesia Additional Past Anesthesia/Blood Transfusion Reaction / Comment(s): Mom with PONV. Past Psychological History: No Psychological Hx Reported Smoking Status: Never smoker Past Alcohol Use History: Occasional Past Drug Use History: None Reported Objective - Vital Signs Vital signs: Vital Signs Temp 98 F 04/16/19 10:12 Pulse 86 04/16/19 10:12 Resp 18 04/16/19 10:12 BP 144/84 04/16/19 10:12 Pulse Ox 97 04/16/19 10:12 Intake & Output 04/15/19 04/16/19 04/16/19 18:59 06:59 18:59 Weight 77.564 kg - Exam BMI 30.3 - Constitutional General appearance: Present: average body habitus - EENT Eyes: Present: EOMI ENT: Present: hearing grossly normal - Neck Details: no cervical adenopathy Neck: Present: normal ROM - Respiratory Respiratory: bilateral: CTA - Cardiovascular Rhythm: regular Heart sounds: normal: S1, S2 - Gastrointestinal Gastrointestinal Comment(s): No guarding or rebound, normal bowel sounds, liver spleen normal size General gastrointestinal: Present: soft - Integumentary Integumentary Comment(s): Multiple scars bilateral breast well healed Integumentary: Present: normal turgor - Musculoskeletal Musculoskeletal: Present: gait normal - Psychiatric Psychiatric: Present: A&O x's 3, appropriate affect, intact judgment & insight - Additional findings Additional findings: Breast examination: Right breast: Multi-positional exam well-healed scar from prior surgery, fibrocystic changes, dense tissue, no discrete dominant masses or nodules,no discharge Right axilla: No adenopathy of concern Left breast: Multi-positional exam on the scar from prior surgery, fibrocystic changes, dense tissue no discrete dominant masses or nodules of concern, no nipple discharge of concern Left axilla: No adenopathy of concern Assessment and Plan Assessment: Impression: 1. Bilateral fibrocystic breast changes no dominant masses or nodules of concern 2. Recent bilateral mammogram benign repeat bilateral mammogram in a year 3. Asthma 4. Arthritis 5. Sleep apnea 6. Intermittent mastodynia most likely fibrocystic Plan: 1. Bilateral mammogram in 1 year with physician exam 2. Patient to call sooner if she notes any lesions of concern 3. Mastodynia intermittent, we have discussed. Was oil she was given a book on breast pain and she will use this as needed 4. Continues to use CPAP CC: Dr. Amezquita
== END | disposition home or self-care (01) ==
LOC: WWCWWP 09:30
PROVIDERS: ATTEND Surgery
DX: Z53.9 Procedure and treatment not carried out, unspecified reason (principal)

== ENCOUNTER → 2019-11-09 | Outpatient (CLI) | payer BC ==
[2019-11-09 11:29] LABS: Basophils % (A) 1 %; Eosinophils # (A) 0.1 k/uL (0-0.7); Eosinophils % (A) 1 %; HCT 44.5 % (34.0-46.0); HGB 14.4 gm/dL (11.4-16.0); Hypochromasia Slight; Lymphocytes % (A) 22 %; MCH 31.4 pg (25.0-35.0); MCHC 32.3 g/dL (31.0-37.0); MCV 97.2 fL (80.0-100.0); Mean Platelet Volume 6.4; Monocytes # (A) 0.6 k/uL (0-1.0); Monocytes % (A) 7 %; Neutrophils # (A) 5.7 k/uL (1.3-7.7); Neutrophils % (A) 65 %; Platelet Count 355 k/uL (150-450); RBC 4.57 m/uL (3.80-5.40); RDW 12.8 % (11.5-15.5); WBC 8.8 k/uL (3.8-10.6)
[2019-11-09 11:39] LABS: INR 0.9 (<1.2); Partial Thromboplastin Time 24.1 sec (22.0-30.0); Prothrombin Time 9.4 sec (9.0-12.0)
[2019-11-09 11:53] LABS: Appearance,Urine Clear (Clear); Bilirubin,Urine Negative (Negative); Blood,Urine Negative (Negative); Color,Urine Colorless; Glucose,Urine (UA) Negative (Negative); Ketones,Urine Negative (Negative); Leukocyte Esterase,Urine Negative (Negative); Nitrite,Urine Negative (Negative); Protein,Urine Negative (Negative); Specific Gravity,Urine 1.005 (1.001-1.035); Urobilinogen,Urine <2.0 mg/dL (<2.0)
[2019-11-09 15:27] LABS: African American GFR (CKD) 78.3 (60.0-200.0); Anion Gap 7.7 mmol/L (4.00-12.00); BUN/Creat Ratio 15.56 Ratio (12.00-20.00); Calcium 9.5 mg/dL (8.7-10.3); Carbon Dioxide 28.3 mmol/L (21.6-31.8); Non-African American GFR(CKD) 67.6 (60.0-200.0); Potassium 4.6 mmol/L (3.5-5.5)
== END | disposition home or self-care (01) ==
LOC: LABWHC1 10:20
PROVIDERS: ATTEND Nurse Practitioner Family
DX: Z01.812 Encounter for preprocedural laboratory examination (principal)
CPT/HCPCS: 36415; 80048; 81003; 85025; 85610; 85730; 87086

== ENCOUNTER → 2020-01-18 | Outpatient (CLI) | payer MEDICARE ==
[2020-01-18 17:01] LABS: T4, Free (Free Thyroxine) 1.1 ng/dL (0.80-1.80)
== END | disposition home or self-care (01) ==
LOC: LABWHC1 09:40
PROVIDERS: ATTEND Internal Medicine Endocrinology, Diabetes & Metabolism
DX: E04.2 Nontoxic multinodular goiter (principal)
CPT/HCPCS: 36415; 84439; 84443

== ENCOUNTER → 2020-02-22 | Outpatient (CLI) | payer MEDICARE ==
--- NOTE | 2020-02-23 10:01 | MM ---
Reason for exam: screening (asymptomatic). Last mammogram was performed 10 months ago. History: Patient is postmenopausal and is nulliparous. Family history of breast cancer in mother at age 72. Benign excisional biopsy of the right breast, April 30, 2000. Benign excisional biopsy of the left breast, November 29, 1998. 9 cyst aspirations of the left breast. 2 cyst aspirations of the right breast. Excisional biopsy of the right breast. Physical Findings: A clinical breast exam by your physician is recommended on an annual basis and results should be correlated with mammographic findings. MG 3D Screening Mammo W/Cad Bilateral CC and MLO view(s) were taken. Prior study comparison: April 09, 2019, bilateral MG 3d screening mammo w/cad. April 21, 2018, mammogram, performed at [facility]. The breast tissue is heterogeneously dense. This may lower the sensitivity of mammography. Benign appearing bilateral calcifications. Previous mammotome biopsy in the left breast. No significant changes when compared with prior studies. ASSESSMENT: Benign, BI-RAD 2 RECOMMENDATION: Routine screening mammogram of both breasts in 1 year.
== END | disposition home or self-care (01) ==
LOC: RADMAMWWP 08:13
PROVIDERS: ATTEND Surgery
DX: Z12.31 Encounter for screening mammogram for malignant neoplasm of breast (principal)
CPT/HCPCS: 77063; 77067

== ENCOUNTER → 2020-02-24 | Outpatient (CLI) | payer MEDICARE ==
[2020-02-24 09:46] VITALS: BP 133/80; PULSE 85; RESP 18; TEMP 98.1
--- NOTE | 2020-02-24 10:01 | P.PN ---
Subjective Progress Note Date: 02/24/20 Principal diagnosis: Fibrocystic breast changes Torri is a 64 year old white female who presents for a breast exam. The patient denies any lumps or masses in her breast. She has pain intermittently in the left breast in the upper outer quadrant area, this is only occasional and is better than they have been in the past. The pain is aching in nature. She has had multiple bilateral prior biopsies. The discomfort seems to resolve on its own. She does not related to any specific activities. That not had any trauma to her breast. She has no nipple discharge or skin changes for which she is concerned. Patient does not drink any caffeine. She does not smoke and is not exposed to secondhand smoke. She does eat chocolate weekly. She does not take hormones or use any soy products. The patient had a bilateral 3-D mammogram on 02-22-20. This revealed benign calcifications in both breasts. It was considered benign BIRADS 2 Family History: mother: breast cancer 73 brother: colon/metastatic maternal aunt: colon Hormonal History: menarche: 13 ; none menopause: 55 BCP: none hormones: none Past Surgical History: 1. Bunionectomy 2. Left thyroid lobectomy 3. Multiple bilateral breast biopsies 4. Right oophrectomy 5. right carpal tunnel 6. left shoulder rotater cuff repair 7. left knee 8. heart cath 9. total knee left November 15, 2019 Medical history: 1. Sleep apnea 2. High cholesterol Social history: Smoked: Negative Alcohol: Occasional wine Drugs: negative - Constitutional Comment: hot flashes improved Constitutional: Denies chills, Denies fever - EENT Eyes: denies blurred vision, denies pain Ears: bilateral: tinnitus, deny: decreased hearing Ears, nose, mouth and throat: Denies headache, Denies sore throat - Breasts Breasts: bilateral: as per HPI - Cardiovascular Cardiovascular: Denies chest pain, Denies shortness of breath - Respiratory Comment: asthma sleep apnea Respiratory: Denies cough, - Gastrointestinal Comment: Colonoscopy up-to-date Gastrointestinal: Reports constipation, Denies abdominal pain, Denies diarrhea, Denies nausea, Denies vomiting - Genitourinary (Female) Genitourinary: Denies dysuria, Denies hematuria - Menstruation Menstruation: Reports postmenopausal - Musculoskeletal Comment: arthritis - Integumentary Integumentary: Denies pruritus, Denies rash - Neurological Neurological: Denies numbness, Denies weakness - Psychiatric Psychiatric: Denies anxiety, Denies depression - Endocrine Endocrine: Denies fatigue, Denies weight change - Hematologic/Lymphatic Comment: motrin - Allergic/Immunologic Comment: no seasonal allergies Objective - Vital Signs Vital signs: Vital Signs Temp 98.1 F 02/24/20 09:43 Pulse 85 02/24/20 09:43 Resp 18 02/24/20 09:43 BP 133/80 02/24/20 09:43 Pulse Ox 96 02/24/20 09:43 Intake & Output 02/23/20 02/24/20 02/24/20 18:59 06:59 18:59 Weight 75.296 kg - Exam BMI 28.9 - Constitutional General appearance: Present: average body habitus - EENT Eyes: Present: EOMI ENT: Present: hearing grossly normal - Neck Neck: Present: normal ROM - Respiratory Respiratory: bilateral: CTA - Cardiovascular Rhythm: regular Heart sounds: normal: S1, S2 - Gastrointestinal General gastrointestinal: Present: normal bowel sounds, soft - Integumentary Integumentary: Present: normal turgor - Musculoskeletal Musculoskeletal: Present: gait normal - Psychiatric Psychiatric: Present: A&O x's 3, appropriate affect, intact judgment & insight - Additional findings Additional findings: Breast exam: BRA: 38C inspection: Ptosis grade 2 bilateral Palpation: Right breast: Multi-positional exam no dominant masses or nodules of concern, well-healed scar from prior surgery Right axilla: No adenopathy of concern Left breast: Multiple positional exam no dominant masses or nodules of concern, well-healed scar from prior surgery Left axilla: No adenopathy of concern Assessment and Plan Assessment: Impression: 1. Fibrocystic breast changes 2. Status post multiple bilateral breast biopsies 3. Mastodynia improved 4. Sleep apnea 5. Arthritis 6. Asthma 7. Recent bilateral mammogram, benign by related to repeat in 1 year Plan: 1. Bilateral mammogram in 1 year with physician exam 2. Patient call sooner if any questions or concerns 3. Mastodynia intermittent but improved 4. Medical management of medical conditions Cc: Dr. Erazo encounter 15 minutes, >%50% of time in planning and counselling Time with Patient: Less than 30
== END | disposition home or self-care (01) ==
LOC: WWCWWP 09:33
PROVIDERS: ATTEND Surgery
DX: Z53.9 Procedure and treatment not carried out, unspecified reason (principal)

== ENCOUNTER → 2020-03-08 | Outpatient (CLI) | payer MEDICARE ==
--- NOTE | 2020-03-08 14:15 | US ---
EXAMINATION TYPE: US thyroid st tissue head/neck DATE OF EXAM: 03/08/2020 COMPARISON: US 11/19/2017 CLINICAL HISTORY: E04.2 MULTINODULAR GOITER. GLAND SIZE: Right Lobe: 4.0 X 1.2 X 1.4 cm Overall Parenchyma: homogenous Left Lobe: Surgically absent NODULES RIGHT: # of nodules measured on right: 2 1. 0.7 X 0.4 x 0.6 cm hypoechoic solid nodule at the upper pole with well-defined margins; . This nodule is wider than tall and shows intranodular vascularity. Prior size: 0.8 x 0.4 x 0.6 cm 2. 0.5 X 0.4 x 0.4 cm hypoechoic mixed nodule at the mid pole with well-defined margins; . This nod ule is wider than tall and shows intranodular vascularity. Prior size: 0.6 x 0.3 x 0.4 cm LEFT: # of nodules measured on left: 0 ISTHMUS: # of nodules measured in the isthmus: 1 1. 0.8 X 0.3 x 0.7 cm hypoechoic cystic nodule at the mid pole with well-defined margins; . This n odule is wider than tall and shows no intranodular vascularity. Prior size: no previous At the area of the palpable lump left neck, there is a hypoechoic area visualized measuring 0.4 x 0.3 x 0.6 cm with vascularity. Possible lymph node vs other IMPRESSION: 1. No subcentimeter thyroid nodularity is nonspecific. Possible lymph node at the site of clinical co ncern. Correlate clinically.
== END | disposition home or self-care (01) ==
LOC: RADUSWWP 12:48
PROVIDERS: ATTEND Internal Medicine Endocrinology, Diabetes & Metabolism
DX: E04.2 Nontoxic multinodular goiter (principal)
CPT/HCPCS: 76536

== ENCOUNTER → 2021-02-26 | Outpatient (CLI) | payer MEDICARE ==
--- NOTE | 2021-02-28 09:10 | MM ---
Reason for exam: screening (asymptomatic). Last mammogram was performed 1 year ago. History: Patient is postmenopausal and is nulliparous. Family history of breast cancer in mother at age 72. Benign excisional biopsy of the right breast, April 30, 2000. Benign excisional biopsy of the left breast, November 29, 1998. 9 cyst aspirations of the left breast. 2 cyst aspirations of the right breast. Excisional biopsy of the right breast. Physical Findings: A clinical breast exam by your physician is recommended on an annual basis and results should be correlated with mammographic findings. MG 3D Screening Mammo W/Cad Bilateral CC and MLO view(s) were taken. Prior study comparison: February 22, 2020, bilateral MG 3d screening mammo w/cad. April 09, 2019, bilateral MG 3d screening mammo w/cad. April 21, 2018, mammogram, performed at [facility]. There are scattered fibroglandular densities. No significant changes when compared with prior studies. ASSESSMENT: Benign, BI-RAD 2 RECOMMENDATION: Routine screening mammogram of both breasts in 1 year.
== END | disposition home or self-care (01) ==
LOC: RADMAMWWP 08:10
PROVIDERS: ATTEND Surgery
DX: Z12.31 Encounter for screening mammogram for malignant neoplasm of breast (principal); Z78.0 Asymptomatic menopausal state; Z80.3 Family history of malignant neoplasm of breast
CPT/HCPCS: 77063; 77067

== ENCOUNTER → 2021-03-01 | Outpatient (CLI) | payer MEDICARE ==
[2021-03-01 09:51] VITALS: BP 145/80; PULSE 76; RESP 16; TEMP 98.3
--- NOTE | 2021-03-01 10:00 | P.PN ---
Subjective Progress Note Date: 03/01/21 Principal diagnosis: Fibrocystic breast disease Fibrocystic breast changes Torri is a 64 year old white female who presents for a breast exam. The patient denies any lumps or masses in her breast. She had pain intermittently in the left breast in the upper outer quadrant area, this has improved and she is not complaining of any pain at this time. She has had multiple bilateral prior biopsies. That not had any trauma to her breast. She has no nipple discharge or skin changes for which she is concerned. Patient does not drink any caffeine. She does not smoke and is not exposed to secondhand smoke. She does eat chocolate weekly. She does not take hormones or use any soy products. The patient had a bilateral 3-D mammogram on 02-26-21. It was considered benign BIRADS 2 Family History: mother: breast cancer 73 brother: colon/metastatic maternal aunt: colon Hormonal History: menarche: 13 ; none menopause: 55 BCP: none hormones: none Past Surgical History: 1. Bunionectomy 2. Left thyroid lobectomy 3. Multiple bilateral breast biopsies 4. Right oophrectomy 5. right carpal tunnel 6. left shoulder rotater cuff repair 7. left knee 8. heart cath 9. total knee left November 15, 2019 Medical history: 1. Sleep apnea 2. High cholesterol Social history: Smoked: Negative Alcohol: Occasional wine Drugs: negative - Constitutional Comment: hot flashes improved Constitutional: Denies chills, Denies fever - EENT Eyes: denies blurred vision, denies pain Ears: bilateral: tinnitus, deny: decreased hearing Ears, nose, mouth and throat: Denies headache, Denies sore throat - Breasts Breasts: bilateral: as per HPI - Cardiovascular Cardiovascular: Denies chest pain, Denies shortness of breath - Respiratory Comment: asthma sleep apnea Respiratory: Denies cough, - Gastrointestinal Comment: Colonoscopy up-to-date Gastrointestinal: Reports constipation, Denies abdominal pain, Denies diarrhea, Denies nausea, Denies vomiting - Genitourinary (Female) Genitourinary: Denies dysuria, Denies hematuria - Menstruation Menstruation: Reports postmenopausal - Musculoskeletal Comment: arthritis - Integumentary Integumentary: Denies pruritus, Denies rash - Neurological Neurological: Denies numbness, Denies weakness - Psychiatric Psychiatric: Denies anxiety, Denies depression - Endocrine Endocrine: Denies fatigue, Denies weight change - Hematologic/Lymphatic Comment: motrin - Allergic/Immunologic Comment: no seasonal allergies Objective - Exam BMI 30.1 - Constitutional General appearance: Present: cooperative - EENT Eyes: Present: EOMI ENT: Present: hearing grossly normal - Neck Neck: Present: normal ROM - Respiratory Respiratory: bilateral: CTA - Cardiovascular Heart sounds: normal: S1, S2 - Gastrointestinal General gastrointestinal: Present: soft - Integumentary Integumentary: Present: normal turgor - Musculoskeletal Musculoskeletal: Present: gait normal - Psychiatric Psychiatric: Present: A&O x's 3, appropriate affect, intact judgment & insight - Additional findings Additional findings: Breast examination: Pietro: 38C Inspection: Bilateral grade 2 ptosis Palpation: Right breast: Post positional exam no dominant masses or nodules of concern, well-healed scars from prior surgery Right axilla: No adenopathy of concern Left breast: Multiple positional exam dominant masses or nodules of concern, well-healed scars from prior surgery Left axilla: No adenopathy of concern Assessment and Plan Assessment: Impression: Fibrocystic breast changes Multiple bilateral biopsies benign Bilateral mammogram February 26 benign BIRADS 2 Plan: Bilateral mammogram in 1 year with physician exam CC: Dr. Erazo
== END ==
LOC: WWCWWP 09:35
PROVIDERS: ATTEND Surgery
DX: N60.12 Diffuse cystic mastopathy of left breast (principal); E78.00 Pure hypercholesterolemia, unspecified; F17.200 Nicotine dependence, unspecified, uncomplicated; Z88.1 Allergy status to other antibiotic agents

== ENCOUNTER → 2022-02-28 | Outpatient (CLI) | payer MEDICARE ==
--- NOTE | 2022-03-01 19:06 | MM ---
Reason for Exam: Screening (asymptomatic). Last screening mammogram was performed 12 month(s) ago. Patient History: Menarche at age 13. Patient has no children. Right ovary removed at age 39. Postmenopausal. Cyst Aspiration on the Right side. Cyst Aspiration on the Right side. Cyst Aspiration on the Left side. Cyst Aspiration on the Left side. Cyst Aspiration on the Left side. Cyst Aspiration on the Left side. Cyst Aspiration on the Left side. Cyst Aspiration on the Left side. Cyst Aspiration on the Left side. Cyst Aspiration on the Left side. Cyst Aspiration on the Left side. Excisional Biopsy on the Right side. 04/30/2000, Benign Excisional Biopsy on the right side. 11/29/1998, Benign Excisional Biopsy on the left side. Mother had breast cancer, age 72. Risk Values: Rachele 5 year model risk: 4.5%. NCI Lifetime model risk: 14.9%. Prior Study Comparison: 04/10/2016 Screening Mammogram, [facility]. 04/21/2018 Screening Mammogram, [facility]. 04/09/2019 Bilateral Screening Mammogram, [facility]. 02/22/2020 Bilateral Screening Mammogram, [facility]. 02/26/2021 Bilateral Screening Mammogram, [facility]. Tissue Density: There are scattered fibroglandular densities. Findings: Analyzed By CAD. Left breast biopsy clip. Architectural distortion within the right breast upper outer quadrant middle depth. Overall Assessment: Incomplete: need additional imaging evaluation, BI-RAD 0 Management: Diagnostic Breast Ultrasound of the right breast. A clinical breast exam by your physician is recommended on an annual basis and results should be correlated with mammographic findings. Electronically signed and approved by: Delroy Martinez DO
== END | disposition home or self-care (01) ==
LOC: RADMAMWWP 08:59
PROVIDERS: ATTEND Surgery
DX: Z12.31 Encounter for screening mammogram for malignant neoplasm of breast (principal); Z80.3 Family history of malignant neoplasm of breast; Z78.0 Asymptomatic menopausal state; Z98.890 Other specified postprocedural states
CPT/HCPCS: 77063; 77067

== ENCOUNTER → 2022-03-07 | Outpatient (CLI) | payer MEDICARE ==
--- NOTE | 2022-03-07 11:58 | USB ---
Reason for Exam: Additional evaluation requested from abnormal screening. Patient History: Menarche at age 13. Patient has no children. Right ovary removed at age 39. Postmenopausal. Cyst Aspiration on the Right side. Cyst Aspiration on the Right side. Cyst Aspiration on the Left side. Cyst Aspiration on the Left side. Cyst Aspiration on the Left side. Cyst Aspiration on the Left side. Cyst Aspiration on the Left side. Cyst Aspiration on the Left side. Cyst Aspiration on the Left side. Cyst Aspiration on the Left side. Cyst Aspiration on the Left side. Excisional Biopsy on the Right side. 04/30/2000, Benign Excisional Biopsy on the right side. 11/29/1998, Benign Excisional Biopsy on the left side. Mother had breast cancer, age 72. Risk Values: Rachele 5 year model risk: 4.5%. NCI Lifetime model risk: 14.9%. Technique: Method: Targeted. Prior Study Comparison: 02/22/2020 Bilateral Screening Mammogram, [facility]. 02/26/2021 Bilateral Screening Mammogram, [facility]. 02/28/2022 Bilateral MG 3D screening mammo w/cad, [facility]. Findings: The upper outer quadrant of the right breast, the axilla of the right breast and the retroareolar of the right breast were scanned. Targeted scanning upper outer quadrant 9:00 to 12:00 including the axilla and subareolar region. No solid or cystic lesion is seen. Scattered dense tissues. Mammographic findings compatible with excisional scar.. Overall Assessment: Benign, BI-RAD 2 Management: Screening Mammogram of both breasts in 1 year. 1. Patient should continue monthly self breast exams. 2. Note that per NCCN guidelines, a five-year risk assessment greater than 1.67% is used to assess eligibility for a risk reducing agent. 3. This exam should not preclude additional follow-up of suspicious palpable abnormalities. Electronically signed and approved by: Max Costa M.D. Radiologist
== END | disposition home or self-care (01) ==
LOC: RADUSWWP 08:59
PROVIDERS: ATTEND Surgery
DX: R92.8 Other abnormal and inconclusive findings on diagnostic imaging of breast (principal)

== ENCOUNTER → 2022-03-07 | Outpatient (CLI) | payer MEDICARE ==
[2022-03-07 10:05] VITALS: BP 149/78; PULSE 87; RESP 17; TEMP 98.1
--- NOTE | 2022-03-07 10:28 | P.PN ---
Subjective Progress Note Date: 03/07/22 Principal diagnosis: fibrocystic breast Torri is a 66 year old white female who presents for a breast exam. The patient denies any lumps or masses in her breast. She has had multiple bilateral prior biopsies. She has not had any trauma to her breast. She has no nipple discharge or skin changes for which she is concerned. BIalteral mammogram on 02-28-22 which was BIRAD 0 and ultrasound of the right breast recommended, no changes in the left breast. She is not complaining of any lumps, masses, or nodules in either breast. She had an ultrasound of the right breast done today, results are pending. We discussed the Torri risk evaluation and that option of chemoprevention for the five-year risk of 4.5%, and at this time the patient has declined. Rachele Risk: 5 year 4.5% lifetime: 14.9% Patient does not drink any caffeine. She does not smoke and is not exposed to secondhand smoke. She does eat chocolate weekly. She does not take hormones or use any soy products. The patient had a bilateral 3-D mammogram on 02-26-21. It was considered benign BIRADS 2 Family History: mother: breast cancer 73 brother: colon/metastatic maternal aunt: colon Hormonal History: menarche: 13 ; none menopause: 55 BCP: none hormones: none Past Surgical History: 1. Bunionectomy 2. Left thyroid lobectomy 3. Multiple bilateral breast biopsies 4. Right oophrectomy 5. right carpal tunnel 6. left shoulder rotater cuff repair 7. left knee 8. heart cath 9. total knee left November 15, 2019 Medical history: 1. Sleep apnea 2. High cholesterol Social history: Smoked: Negative Alcohol: Occasional wine Drugs: negative - Constitutional Comment: hot flashes improved Constitutional: Denies chills, Denies fever - EENT Eyes: denies blurred vision, denies pain Ears: bilateral: tinnitus, deny: decreased hearing Ears, nose, mouth and throat: Denies headache, Denies sore throat - Breasts Breasts: bilateral: as per HPI - Cardiovascular Cardiovascular: Denies chest pain, Denies shortness of breath - Respiratory Comment: asthma sleep apnea Respiratory: Denies cough, - Gastrointestinal Comment: Colonoscopy up-to-date Gastrointestinal: Reports constipation, Denies abdominal pain, Denies diarrhea, Denies nausea, Denies vomiting - Genitourinary (Female) Genitourinary: Denies dysuria, Denies hematuria - Menstruation Menstruation: Reports postmenopausal - Musculoskeletal Comment: arthritis - Integumentary Integumentary: Denies pruritus, Denies rash - Neurological Neurological: Denies numbness, Denies weakness - Psychiatric Psychiatric: Denies anxiety, Denies depression - Endocrine Endocrine: Denies fatigue, Denies weight change - Hematologic/Lymphatic Comment: motrin - Allergic/Immunologic Comment: no seasonal allergies Objective - Vital Signs Vital signs: Vital Signs Temp 98.1 F 03/07/22 10:03 Pulse 87 03/07/22 10:03 Resp 17 03/07/22 10:03 BP 149/78 03/07/22 10:03 Pulse Ox 96 03/07/22 10:03 FiO2 Intake & Output 03/06/22 03/07/22 03/07/22 18:59 06:59 18:59 Weight 76.204 kg - Exam BMI: 29.8 - Constitutional General appearance: Present: cooperative - EENT Eyes: Present: EOMI ENT: Present: hearing grossly normal - Neck Neck: Present: normal ROM - Respiratory Respiratory: bilateral: CTA - Cardiovascular Rhythm: regular Heart sounds: normal: S1, S2 - Integumentary Integumentary: Present: normal turgor - Musculoskeletal Musculoskeletal: Present: gait normal - Psychiatric Psychiatric: Present: A&O x's 3, appropriate affect, intact judgment & insight - Additional findings Additional findings: Breast examination: BRA: 38C Inspection: Bilateral grade 2 ptosis, bilateral well-healed scars from prior biopsies Palpation: Right breast: Multi-positional exam fibrocystic changes no dominant masses or nodules of concern Right axilla: No adenopathy of concern Left breast: Multi-positional exam fibrocystic changes no dominant masses or nodules of concern Left axilla: No adenopathy of concern Assessment and Plan Assessment: Impression: Fibrocystic breast changes Dear risk evaluation 4.5% 5 year risk Ultrasound of the right breast recommended after bilateral mammogram performed on results to be reviewed with radiologist Plan: Repeat bilateral mammogram as per radiology after review of ultrasound of the right breast Patient to follow up sooner any questions or concerns CC: Dr. Erazo
== END ==
LOC: WWCWWP 09:42
PROVIDERS: ATTEND Surgery
DX: N60.11 Diffuse cystic mastopathy of right breast (principal); N60.12 Diffuse cystic mastopathy of left breast; E78.00 Pure hypercholesterolemia, unspecified; Z88.1 Allergy status to other antibiotic agents

== ENCOUNTER → 2022-11-25 | Outpatient (CLI) | payer MEDICARE ==
--- NOTE | 2022-11-25 10:50 | US ---
EXAMINATION TYPE: US thyroid st tissue head/neck DATE OF EXAM: 11/25/2022 COMPARISON: NONE CLINICAL INDICATION: Female, 66 years old with history of E04.2 Nontoxic multinodular goiter; thyroid nodules. left thyroidectomy GLAND SIZE: Right Lobe: 4.8 x 1.9 x 1.8 cm Overall Parenchyma: homogenous Left Lobe: Surgically absent NODULES RIGHT: # of nodules measured on right: 2 1. 0.9 X 0.5 x 0.8 cm, upper , solid or almost completely solid, hypoechoic nodule, which is wider than tall, with smooth margins, without echogenic foci. Prior size: 0.7 x 0.4 x 0.6 cm 2. 0.8 X 0.6 x 0.6 cm, mid , mixed cystic and solid, hypoechoic nodule, which is wider than tall, w ith smooth margins, without echogenic foci. Prior size: 0.5 x 0.4 x 0.4 cm LEFT: # of nodules measured on left: 0 ISTHMUS: # of nodules measured in the isthmus: 0 Bilateral neck scanned, no evidence of lymphadenopathy. IMPRESSION: Stable nonspecific nodules right thyroid lobe.
== END | disposition home or self-care (01) ==
LOC: RADUSWWP 08:12
PROVIDERS: ATTEND Internal Medicine Endocrinology, Diabetes & Metabolism
DX: E04.2 Nontoxic multinodular goiter (principal)
CPT/HCPCS: 76536

== ENCOUNTER 2022-12-20 10:51 | Day surgery (SDC) | payer MEDICARE ==
[2022-12-13 15:40] VITALS: BMI 27.6
[2022-12-20] MEDS ORDERED: LACTATED RINGERS 1,000 ML IV SCH (11:20)
[2022-12-20 11:33] VITALS: TEMP 97
[2022-12-20] MEDS ORDERED: PROPOFOL 10 MG/ML 20 ML VIAL IV ONE (12:04)
--- NOTE | 2022-12-20 12:22 | P.PCN ---
Date of Procedure: 12/20/22 Procedure(s) Performed: BRIEF HISTORY: Patient is a 67-year-old pleasant white female scheduled for an elective colonoscopy as a part of change in bowel habits and family history of colon cancer. Her brother was diagnosed with colon cancer at age 64. PROCEDURE PERFORMED: Colonoscopy With biopsy PREOPERATIVE DIAGNOSIS: Change in bowel habits and family history of colon cancer. IV sedation per Anesthesia. PROCEDURE: After informed consent was obtained, the patient, was brought into the endoscopy unit. IV sedation was administered by Anesthesia under continuous monitoring. Digital rectal examination was normal. Initially the Olympus CF-160 flexible video colonoscope was then inserted in the rectum, gradually advanced into the cecum without any difficulty. Careful examination was performed as the scope was gradually being withdrawn. Ileocecal valve and the appendiceal orifice were visualized and appeared normal. Prep was excellent. Mucosa of the cecum, we normal. Ascending colon there was a 3 mm polyp that was removed by cold biopsy. In the descending colon there was a 5 limited polyp removed by cold biopsy. Rest of the ascending colon, transverse colon, descending colon, sigmoid colon, and rectum appeared normal. Scattered sigmoid diverticulosis. Retroflexion was performed in the rectum and no lesions were seen. The patient tolerated the procedure well. IMPRESSION: 3 mm ascending colon polyp status post cold biopsy 5 mm descending colon polyp status post cold biopsy Scattered sigmoid diverticulosis RECOMMENDATIONS: Findings of this examination were discussed with the patient as well as a family. She was advised to follow with the biopsy results and have a repeat colonoscopy in 5 because of the family history of colon cancer
[2022-12-20 12:27] VITALS: RESP 16
[2022-12-20 12:42] VITALS: BP 123/70; PULSE 76
== END 2022-12-20 13:15 | disposition home or self-care (01) ==
LOC: ORWHC2ENDO 10:51
PROVIDERS: ATTEND Internal Medicine Gastroenterology
DX: K63.5 Polyp of colon (principal); Z80.0 Family history of malignant neoplasm of digestive organs; K57.30 Diverticulosis of large intestine without perforation or abscess without bleeding; I10 Essential (primary) hypertension; E78.5 Hyperlipidemia, unspecified; J45.909 Unspecified asthma, uncomplicated; G47.33 Obstructive sleep apnea (adult) (pediatric); Z99.89 Dependence on other enabling machines and devices; E03.9 Hypothyroidism, unspecified; K21.9 Gastro-esophageal reflux disease without esophagitis; Z88.1 Allergy status to other antibiotic agents; Z79.1 Long term (current) use of non-steroidal anti-inflammatories (NSAID); Z79.899 Other long term (current) drug therapy; Z79.51 Long term (current) use of inhaled steroids; Z79.890 Hormone replacement therapy
CPT/HCPCS: 88305; 45380; J2704

== ENCOUNTER → 2023-03-03 | Outpatient (CLI) | payer MEDICARE ==
--- NOTE | 2023-03-03 08:37 | MM ---
Reason for Exam: Follow-up at short interval from prior study. Last screening mammogram was performed 12 month(s) ago. Patient History: Menarche at age 13. Patient has no children. Right ovary removed at age 39. Postmenopausal. Cyst Aspiration on the Right side. Cyst Aspiration on the Right side. Cyst Aspiration on the Left side. Cyst Aspiration on the Left side. Cyst Aspiration on the Left side. Cyst Aspiration on the Left side. Cyst Aspiration on the Left side. Cyst Aspiration on the Left side. Cyst Aspiration on the Left side. Cyst Aspiration on the Left side. Cyst Aspiration on the Left side. Excisional Biopsy on the Right side. 04/30/2000, Benign Excisional Biopsy on the right side. 11/29/1998, Benign Excisional Biopsy on the left side. Mother had breast cancer, age 72. Risk Values: Rachele 5 year model risk: 4.6%. NCI Lifetime model risk: 14.3%. Tissue Density: There are scattered fibroglandular densities. Findings: Analyzed By CAD. Left breast biopsy clip. Left breast benign-appearing ossifications. No new suspicious masses, calcifications or distortions. Overall Assessment: Benign, BI-RAD 2 Management: Screening Mammogram of both breasts in 1 year. Results were given to the patient verbally at the time of exam. Patient should continue monthly self-breast exams. A clinical breast exam by your physician is recommended on an annual basis. This exam should not preclude additional follow-up of suspicious palpable abnormalities. Note on Rachele scores and lifetime risk: 1. A Rachele score greater than 3% is considered moderate risk. If this is the case, consider specialist referral to assess eligibility for a risk reducing agent. 2. If overall lifetime risk for the development of breast cancer is 20% or higher, the patient may qualify for future screening with alternating mammogram and breast MRI. Electronically signed and approved by: Delroy Martinez DO
== END | disposition home or self-care (01) ==
LOC: RADMAMWWP 08:07
PROVIDERS: ATTEND Surgery
DX: R92.8 Other abnormal and inconclusive findings on diagnostic imaging of breast (principal); Z78.0 Asymptomatic menopausal state; Z80.3 Family history of malignant neoplasm of breast
CPT/HCPCS: 77066; G0279; 77062

== ENCOUNTER → 2023-11-04 | Outpatient (CLI) | payer MEDICARE ==
[2023-11-04 12:05] LABS: African American GFR (CKD) >90 (>60 ml/min/1.73 sqM); Blood Urea Nitrogen 18 mg/dL (7-17); Non-African American GFR(CKD) 84 (>60 ml/min/1.73 sqM)
--- NOTE | 2023-11-06 16:52 | CT ---
EXAMINATION TYPE: CT abdomen w con CT DLP: 642 mGycm, Automated exposure control for dose reduction was used. DATE OF EXAM: 11/04/2023 12:52 PM COMPARISON: None. CLINICAL INDICATION:Female, 67 years old with history of R10.84 generalized abdominal pain; abd pain and bloating TECHNIQUE: Axial CT abdomen w con;Sagittal and coronal reformats were created on a separate workstat ion. Contrast used:100ml mL of Isovue 300 with IV Contrast, (none if empty) Oral contrast used: with Oral Contrast (none if empty) FINDINGS: LOWER CHEST: Unremarkable ABDOMEN LIVER: Unremarkable GALLBLADDER AND BILE DUCTS: Unremarkable. PANCREAS: Unremarkable. SPLEEN: Unremarkable. ADRENAL GLANDS: Unremarkable. KIDNEYS AND URETERS: No evidence of hydronephrosis or renal calculus. The ureters are unremarkable. STOMACH AND BOWEL: No evidence of bowel obstruction. Large amount stool in the colon. PERITONEUM/RETROPERITONEUM: No evidence of pneumoperitoneum or free fluid. VASCULATURE: No evidence of aortic aneurysm. MUSCULOSKELETAL: No acute osseous abnormalities LYMPH NODES: No gross evidence for lymphadenopathy. SOFT TISSUE/ABDOMINAL WALL: Fat-containing buccal hernia. IMPRESSION: 1. No evidence for acute abdominal process. 2. Large amount stool in the colon.
== END | disposition home or self-care (01) ==
LOC: RADCTMAIN 11:09
PROVIDERS: ATTEND Internal Medicine
DX: R10.84 Generalized abdominal pain (principal)
CPT/HCPCS: 82565; 84520; 74160; Q9967

== ENCOUNTER → 2023-11-17 | Outpatient (CLI) | payer MEDICARE ==
[2023-11-17 19:30] LABS: T4, Free (Free Thyroxine) 1.11 ng/dL (0.80-1.80)
--- NOTE | 2023-11-17 19:45 | US ---
EXAMINATION TYPE: US thyroid st tissue head/neck DATE OF EXAM: 11/17/2023 COMPARISON: US thyroid 11/25/2022, 03/08/2020, 11/19/2017 CLINICAL INDICATION: Female, 67 years old with history of E04.2 NONTOXIC MULTINODULAR GOITER; F/U GLAND SIZE: Right Lobe: 4.6 x 1.5 x 1.8 cm Overall Parenchyma: homogeneous Left Lobe: Surgically absent Isthmus Thickness: 0.3 cm NODULES RIGHT: # of nodules measured on right: 2 1. 0.8 X 0.5 x 0.8 cm, upper, solid or almost completely solid, hypoechoic nodule, which is wider t he tall, with smooth margins, without echogenic foci. Prior size: 0.9 x 0.5 x 0.8 cm 2. 0.8 X 0.5 x 0.7 cm, mid, mixed cystic and solid, hypoechoic nodule, which is wider than tall, wi th smooth margins, without echogenic foci. Prior size: 0.8 x 0.6 x 0.6 cm ISTHMUS: # of nodules measured in the isthmus: 0 Bilateral neck scanned, no evidence of lymphadenopathy. Stable sub-centimeter nodules on right- large st 2 measured. Left lobe surgically absent. No suspicious nodules in the thyroidectomy bed. IMPRESSION: 1. Stable subcentimeter nodules within the right thyroid lobe. No new or enlarging thyroid nodules. 2. Postsurgical changes from left thyroidectomy. No suspicious nodules within the thyroidectomy bed.
== END | disposition home or self-care (01) ==
LOC: RADUSWWP 13:19
PROVIDERS: ATTEND Internal Medicine Endocrinology, Diabetes & Metabolism
DX: E04.2 Nontoxic multinodular goiter (principal)
CPT/HCPCS: 76536; 84439; 84443

== ENCOUNTER → 2024-03-04 | Outpatient (CLI) | payer MEDICARE ==
--- NOTE | 2024-03-11 11:16 | MM ---
Reason for Exam: Screening (asymptomatic). Last screening mammogram was performed 12 month(s) ago. Patient History: Menarche at age 13. Patient has no children. Right ovary removed at age 39. Postmenopausal. Cyst Aspiration on the Right side. Cyst Aspiration on the Right side. Cyst Aspiration on the Left side. Cyst Aspiration on the Left side. Cyst Aspiration on the Left side. Cyst Aspiration on the Left side. Cyst Aspiration on the Left side. Cyst Aspiration on the Left side. Cyst Aspiration on the Left side. Cyst Aspiration on the Left side. Cyst Aspiration on the Left side. Excisional Biopsy on the Right side. 04/30/2000, Benign Excisional Biopsy on the right side. 11/29/1998, Benign Excisional Biopsy on the left side. Mother had breast cancer, age 72. Risk Values: Rachele 5 year model risk: 4.6%. NCI Lifetime model risk: 13.7%. Prior Study Comparison: 02/26/2021 Bilateral Screening Mammogram, [facility]. 02/28/2022 Bilateral MG 3D screening mammo w/cad, [facility]. 03/03/2023 Bilateral MG 3D diag mammo w/cad [facility], [facility]. Tissue Density: The breasts are heterogeneously dense, which may obscure small masses. Findings: Analyzed By CAD. The pattern is symmetrical. Multiple prior core markers are on the left breast. Surgical changes are within the right breast. Findings are stable from comparison. Benign round calcification within the left breast. No suspicious groups of microcalcifications, spiculated or lobular masses, architectural distortion or other secondary signs of malignancy are mammographically apparent. Overall Assessment: Benign, BI-RAD 2 Management: Screening Mammogram of both breasts in 1 year. A negative mammogram report should not preclude additional follow up of suspicious palpable abnormalities. Patient should continue monthly self breast exam. A clinical breast exam by your physician is recommended on an annual basis and results should be correlated with mammographic findings. Note on Rachele scores and lifetime risk: 1. A Rachele score greater than 3% is considered moderate risk. If this is the case, consider specialist referral to assess eligibility for a risk reducing agent. 2. If overall lifetime risk for the development of breast cancer is 20% or higher, the patient may qualify for future screening with alternating mammogram and breast MRI. [facility], , 03/11/2024 11:13 AM. Electronically signed and approved by: Epi Sharif D.O. Radiologis
== END | disposition home or self-care (01) ==
LOC: RADMAMWWP 09:11
PROVIDERS: ATTEND Surgery
CPT/HCPCS: 77063; 77067

== ENCOUNTER → 2024-03-11 | Outpatient (CLI) | payer MEDICARE ==
[2024-03-11 10:52] VITALS: BP 179/81; PULSE 89; RESP 18; TEMP 97.9
--- NOTE | 2024-03-11 11:18 | P.PN ---
Subjective Progress Note Date: 03/11/24 Principal diagnosis: fibrocystic breast disease 02/20/24 Principal diagnosis: fibrocystic breast changes Torri is a 68 year old white female who presents for a breast exam. The patient denies any lumps or masses in her breast. She has had multiple bilateral prior biopsies. She has not had any trauma to her breast. She has no nipple discharge or skin changes for which she is concerned. Bilateral mammogram on 03-04-24 which was BIRAD 2. This was personally reviewed and discussed with Dr. Anderson. She is not complaining of any lumps, masses, or nodules in either breast. Rachele Risk: 5 year 4.6% lifetime: 14.3% Discuss chemoprophylaxis and the patient has declined at this time Patient does not drink any caffeine. She does not smoke and is not exposed to secondhand smoke. She does eat chocolate weekly. She does not take hormones or use any soy products. Family History: mother: breast cancer 73 brother: colon/metastatic maternal aunt: colon Hormonal History: menarche: 13 ; none menopause: 55 BCP: none hormones: none Past Surgical History: 1. Bunionectomy 2. Left thyroid lobectomy 3. Multiple bilateral breast biopsies 4. Right oophrectomy 5. right carpal tunnel 6. left shoulder rotater cuff repair 7. left knee 8. heart cath 9. total knee left November 15, 2019 10. left eye cataract surgery Medical history: 1. Sleep apnea 2. High cholesterol Social history: Smoked: Negative Alcohol: Occasional wine Drugs: negative - Constitutional Comment: hot flashes improved Constitutional: Denies chills, Denies fever - EENT Eyes: denies blurred vision, denies pain Ears: bilateral: tinnitus, deny: decreased hearing Ears, nose, mouth and throat: Denies headache, Denies sore throat - Breasts Breasts: bilateral: as per HPI - Cardiovascular Cardiovascular: Denies chest pain, Denies shortness of breath - Respiratory Comment: asthma sleep apnea Respiratory: Denies cough, - Gastrointestinal Comment: Colonoscopy up-to-date Gastrointestinal: Reports constipation, Denies abdominal pain, Denies diarrhea, Denies nausea, Denies vomiting - Genitourinary (Female) Genitourinary: Denies dysuria, Denies hematuria - Menstruation Menstruation: Reports postmenopausal - Musculoskeletal Comment: arthritis - Integumentary Integumentary: Denies pruritus, Denies rash - Neurological Neurological: Denies numbness, Denies weakness - Psychiatric Psychiatric: Denies anxiety, Denies depression - Endocrine Endocrine: Denies fatigue, Denies weight change - Hematologic/Lymphatic Comment: motrin - Allergic/Immunologic Comment: no seasonal allergies Objective - Vital Signs Vital signs: Vital Signs Temp 97.9 F 03/11/24 10:50 Pulse 89 03/11/24 10:50 Resp 18 03/11/24 10:50 BP 179/81 03/11/24 10:50 Pulse Ox 97 03/11/24 10:50 FiO2 Intake & Output 03/10/24 03/11/24 03/11/24 18:59 06:59 18:59 Weight 73.936 kg - Constitutional General appearance: Present: cooperative - EENT Eyes: Present: EOMI ENT: Present: hearing grossly normal - Neck Neck: Present: normal ROM - Respiratory Respiratory: bilateral: CTA - Cardiovascular Rhythm: regular Heart sounds: normal: S1, S2 - Integumentary Integumentary: Present: normal turgor - Musculoskeletal Musculoskeletal: Present: gait normal - Psychiatric Psychiatric: Present: A&O x's 3, appropriate affect, intact judgment & insight - Additional findings Additional findings: Breast examination: BRA: 38C Inspection: Bilateral grade 2 ptosis, bilateral well-healed scars from prior biopsies Palpation: Right breast: Multi-positional exam fibrocystic changes no dominant masses or nodules of concern Right axilla: No adenopathy of concern Left breast: Multi-positional exam fibrocystic changes no dominant masses or nodules of concern Left axilla: No adenopathy of concern Assessment and Plan Assessment: Impression: Fibrocystic breast changes Rachele risk evaluation 4.6% 5 year risk bilateral mammogram 03-04-24 BIRAD 2 Plan: Repeat bilateral mammogram one year, with follow up Patient to follow up sooner any questions or concerns CC: Dr. Erazo
== END ==
LOC: WWCWWP 09:34
PROVIDERS: ATTEND Surgery
DX: R92.8 Other abnormal and inconclusive findings on diagnostic imaging of breast (principal); N60.11 Diffuse cystic mastopathy of right breast; N60.12 Diffuse cystic mastopathy of left breast; F17.200 Nicotine dependence, unspecified, uncomplicated; Z80.3 Family history of malignant neoplasm of breast; Z88.1 Allergy status to other antibiotic agents